=== PATIENT | male | born 1970 | race Hispanic/Latino ===

== ENCOUNTER 2016-08-06 15:17 | Emergency (ER) | payer OTHER ==
[2016-08-06] MEDS ORDERED: ANCEF IM ONE (16:36)
--- NOTE | 2016-08-06 16:38 | Emergency Department Report ---
Chief Complaint: Extremity Injury, Upper Stated Complaint: SMASHED FINGER ON PIPE/LEFT HAND Time Seen by Provider: 08/06/16 16:30 - HPI History of Present Illness: partial amp of finger dressed by nurse pt states hanging on bleeding controlled needs tdap/wound repair vss - Exam Vital Signs: Vital Signs 08/06/16 16:25 Temperature 98.1 F Pulse Rate 68 Respiratory 20 Rate Blood Pressure 139/99 O2 Sat by Pulse 97 Oximetry MSE screening note: Focused history and physical exam performed. Due to findings the following was ordered: ED Disposition for MSE Condition: Stable
[2016-08-06] MEDS ORDERED: TENIVAC IM ONE (17:00)
[2016-08-06 18:10] LABS: Basophils % (Auto) 1.2 % (0.0-1.8); Hemoglobin 17.9 gm/dl (11.8-15.2); Mean Corpuscular HGB Conc 33 % (32-34); Mean Corpuscular Hemoglobin 31 pg (28-32); Mean Corpuscular Volume 92 fl (84-94); Platelet Count 240 K/mm3 (140-440); Red Blood Count 5.87 M/mm3 (3.65-5.03); Red Cell Distribution Width 13.9 % (13.2-15.2); White Blood Count 11.3 K/mm3 (4.5-11.0)
[2016-08-06 18:22] LABS: INR 0.98 (0.87-1.13)
[2016-08-06 18:23] LABS: Partial Thromboplastin Time 28.2 Sec. (24.2-36.6)
[2016-08-06 18:26] LABS: Alanine Aminotransferase 41 units/L (7-56); Albumin 4.2 g/dL (3.9-5); Albumin/Globulin Ratio 1.4 %; Alkaline Phosphatase 71 units/L (35-129); Anion Gap 18 mmol/L; Bilirubin,Total 0.2 mg/dL (0.1-1.2); Blood Urea Nitrogen 13 mg/dL (9-20); Calcium 9.5 mg/dL (8.4-10.2); Carbon Dioxide 25 mmol/L (22-30); Chloride 101.3 mmol/L (98-107); Glucose 96 mg/dL (75-100); Potassium 4.2 mmol/L (3.6-5.0); Sodium 140 mmol/L (137-145); Total Protein 7.1 g/dL (6.3-8.2)
[2016-08-06] MEDS ORDERED: ZOFRAN IM ONE (23:49)
[2016-08-06] MEDS ORDERED: DILAUDID IM ONE (23:49)
[2016-08-06] MEDS ORDERED: XYLOCAINE 1% 20 mL INFILTRATI ONE (23:50)
[2016-08-07] MEDS ORDERED: DILAUDID IV ONE ×2 (00:01→01:31)
[2016-08-07] MEDS ORDERED: ANCEF/NS 1 GM/50 ML 1 GM/50 ML BAG IV ONE (00:01)
[2016-08-07] MEDS ORDERED: ZOFRAN IV ONE (00:01)
[2016-08-07] MEDS ORDERED: NACL 0.9% 500 ML IR ONE (00:04)
[2016-08-07] MEDS ORDERED: TRIPLE ANTIBIOTIC TP ONE ×2 (01:32→04:07)
--- NOTE | 2016-08-07 01:34 | Emergency Department Report ---
ED Upper Extremity Inj HPI - General Chief Complaint: Extremity Injury, Upper Stated Complaint: SMASHED FINGER ON PIPE/LEFT HAND Time Seen by Provider: 08/06/16 23:38 Source: patient Mode of arrival: Ambulatory Limitations: No Limitations - History of Present Illness Initial Comments: 45-year-old male with a past medical history elevated cholesterol presents to the hospital complains of left ring finger injury. 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 Patient injured his finger on a pipe. He was not wearing gloves. Denies that his hand was submerged in any water. Patient was seen at [facility] and received Toradol for pain prior to evaluation and was sent to the ER. Tetanus not up to date. Pain is rated 10/10 in intensity, throbbing, constant, worse with palpation and movement. No leading factors reported. Patient is right-hand dominant - Related Data Home Medications Medication Instructions Recorded Confirmed Last Taken Simvastatin [Zocor TAB] 20 mg PO QHS 08/06/16 08/06/16 Unknown Testosterone Enanthate 200 mg IM 1XW 08/06/16 08/06/16 Unknown traMADol [Ultram 50 MG tab] 1 tab PO Q6H PRN 08/06/16 08/06/16 Unknown Previous Rx's Medication Instructions Recorded Last Taken Type Cephalexin [Keflex] 500 mg PO Q6HR #28 capsule 08/07/16 Unknown Rx HYDROcodone/APAP 7.5-325 [[place] 1 each PO Q6HR PRN #20 tablet 08/07/16 Unknown Rx 7.5/325] Ibuprofen [Motrin] 800 mg PO Q8HR PRN #30 tablet 08/07/16 Unknown Rx Allergies Allergy/AdvReac Type Severity Reaction Status Date / Time No Known Allergies Allergy Unverified 08/06/16 16:22 ED Review of Systems ROS: Stated complaint: SMASHED FINGER ON PIPE/LEFT HAND Other details as noted in HPI Comment: All other systems reviewed and negative Other: Constitutional: No fevers chills Eyes: No eye pain visual changes ENT: No ear pain or throat pain Neck: Denies pain Respiratory: Denies cough wheezing shortness of breath Cardiovascular: Denies chest pain, palpitations, syncope GI: Denies abdominal pain, nausea, vomiting, diarrhea : Denies dysuria Musculoskeletal: as per hpi Skin: as per hpi Neurologic: Denies headache, numbness, weakness Psychiatric: Denies suicidal ideation, hallucinations ED Past Medical Hx - Past Medical History Previous Medical History?: Yes Additional medical history: High cholesterol - Surgical History Past Surgical History?: Yes Additional Surgical History: Patent ductus surgery, Back surgery L5-S1 - Social History Smoking Status: Former Smoker Substance Use Type: Alcohol, Prescribed - Medications Home Medications: Home Medications Medication Instructions Recorded Confirmed Last Taken Type Simvastatin [Zocor TAB] 20 mg PO QHS 08/06/16 08/06/16 Unknown History Testosterone Enanthate 200 mg IM 1XW 08/06/16 08/06/16 Unknown History traMADol [Ultram 50 MG tab] 1 tab PO Q6H PRN 08/06/16 08/06/16 Unknown History Cephalexin [Keflex] 500 mg PO Q6HR #28 capsule 08/07/16 Unknown Rx HYDROcodone/APAP 7.5-325 [[place] 1 each PO Q6HR PRN #20 tablet 08/07/16 Unknown Rx 7.5/325] Ibuprofen [Motrin] 800 mg PO Q8HR PRN #30 tablet 08/07/16 Unknown Rx ED Physical Exam - General Limitations: No Limitations - Other Other exam information: General: No limitations, patient is alert in no acute distress Head exam: Atraumatic, normocephalic Eyes exam: Normal appearance ENT: Moist mucous membrane, normal oropharynx Neck exam: Normal inspection, full range of motion, no meningismus nontender Respiratory exam: Clear to auscultation bilateral, no wheezes, rales, crackles Cardiovascular: Normal rate and rhythm, normal heart sounds Abdomen: Soft, nondistended, and nontender, with normal bowel sounds, no rebound, or guarding Extremity: Left hand fourth finger distal 2 cm laceration on the pulp of the finger extending along the side of the nailbed. 100% subungual hematoma with nail slightly lifted upward. sensation intact, FROM. Back: Normal Inspection Neurologic: Alert, oriented x3, cranial nerves intact, no motor or sensory deficit Psychiatric: normal affect, normal mood Skin: Warm, dry, intact ED Course Vital Signs 08/06/16 08/07/16 08/07/16 16:25 00:15 01:13 Temperature 98.1 F Pulse Rate 68 70 70 Respiratory 20 18 18 Rate Blood Pressure 139/99 Blood Pressure 163/101 183/102 [Right] O2 Sat by Pulse 97 99 97 Oximetry - Reevaluation(s) Reevaluation #1: 08/07/16 01:42 meds received: Dilaudid, Zofran, Ancef, and tetanus - Consultations Consultation #1: 08/07/16 12:41 Case d/w DR. Caro. Rec irrigation, loose closure, and outpatient f/u, abx - Laceration /Wound Repair Left Hand Wound Location: upper extremity Wound Length (cm): 2 Wound's Depth, Shape: linear Wound Explored: clean Irrigated w/ Saline (ccs): 500 Betadine Prep?: Yes Anesthesia: 1% Lidocaine Volume Anesthetic (ccs): 6 Suture Size/Type: 4:0, proline Number of Sutures: 5 Layer Closure?: No Sterile Dressing Applied?: Yes Progress: Pt also had cauterization of nail with drainage of subungal hematoma. Nail was already partially lifted and remains in place. pt warned of possible nail loss/ falling off due to this injury. ED Medical Decision Making - Lab Data Result diagrams: 08/06/16 17:34 08/06/16 17:34 Lab Results 08/06/16 08/06/16 08/06/16 Range/Units 17:34 17:34 17:34 WBC 11.3 H (4.5-11.0) K/mm3 RBC 5.87 H (3.65-5.03) M/mm3 Hgb 17.9 H (11.8-15.2) gm/dl Hct 54.0 H (35.5-45.6) % MCV 92 (84-94) fl MCH 31 (28-32) pg MCHC 33 (32-34) % RDW 13.9 (13.2-15.2) % Plt Count 240 (140-440) K/mm3 Lymph % (Auto) 22.6 (13.4-35.0) % Faulk % (Auto) 8.3 H (0.0-7.3) % Eos % (Auto) 5.0 H (0.0-4.3) % Baso % (Auto) 1.2 (0.0-1.8) % Lymph # 2.6 (1.2-5.4) K/mm3 Faulk # 0.9 H (0.0-0.8) K/mm3 Eos # 0.6 H (0.0-0.4) K/mm3 Baso # 0.1 (0.0-0.1) K/mm3 Seg Neutrophils % 62.9 (40.0-70.0) % Seg Neutrophils # 7.1 (1.8-7.7) K/mm3 PT 12.9 (12.2-14.9) Sec. INR 0.98 (0.87-1.13) APTT 28.2 (24.2-36.6) Sec. Sodium 140 (137-145) mmol/L Potassium 4.2 (3.6-5.0) mmol/L Chloride 101.3 (98-107) mmol/L Carbon Dioxide 25 (22-30) mmol/L Anion Gap 18 mmol/L BUN 13 (9-20) mg/dL Creatinine 1.0 (0.8-1.5) mg/dL Estimated GFR > 60 ml/min BUN/Creatinine Ratio 13.00 % Glucose 96 (75-100) mg/dL Calcium 9.5 (8.4-10.2) mg/dL Total Bilirubin 0.2 (0.1-1.2) mg/dL AST 26 (5-40) units/L ALT 41 (7-56) units/L Alkaline Phosphatase 71 (35-129) units/L Total Protein 7.1 (6.3-8.2) g/dL Albumin 4.2 (3.9-5) g/dL Albumin/Globulin Ratio 1.4 % - Radiology Data Radiology results: image reviewed (left hand xray: distal phalanx fracture of ring finger) - Medical Decision Making Patient's his distal finger fracture with associated laceration, probable nailbed injury with subungual hematoma. Sutures placed and nail cauterized to allow drainage of sublingual hematoma. - Differential Diagnosis fxt, contusion, sprain. Critical Care Time: No Critical care attestation.: If time is entered above; I have spent that time in minutes in the direct care of this critically ill patient, excluding procedure time. ED Disposition Clinical Impression: Subungual hematoma, Fracture, finger, distal phalanx, open Finger laceration Qualifiers: Encounter type: initial encounter Qualified Code(s): S61.219A - Laceration without foreign body of unspecified finger without damage to nail, initial encounter Disposition: DISCHARGED TO HOME OR SELFCARE Is pt being admited?: No Does the pt Need Aspirin: No Condition: Stable Instructions: Finger Laceration (ED), Subungual Hematoma (ED), Finger Fracture (ED) Additional Instructions: Take the medication as prescribed. Continue to monitor wound for infection as discussed. Follow up with the Orthopedic doctor provided. Stitches need to be removed in 7-10 days. You may return here for stitches removal, follow up with your primary care doctor or clinic, with orthopedic doctor for removal You will need to see an orthopedic doctor regardles due to your fracture/broken bone in your finger removal. Prescriptions: Cephalexin [Keflex] 500 mg PO Q6HR #28 capsule HYDROcodone/APAP 7.5-325 [[place] 7.5/325] 1 each PO Q6HR PRN #20 tablet PRN Reason: Pain Ibuprofen [Motrin] 800 mg PO Q8HR PRN #30 tablet PRN Reason: Pain Referrals: KATHI CARO MD [Staff Physician] - 3-5 Days Time of Disposition: 01:52
[2016-08-07 02:12] VITALS: BP 145/88
[2016-08-07] MEDS ORDERED: NACL 0.9% IR ONE (04:07)
--- NOTE | 2016-08-07 08:45 | XRay Report ---
Left finger: Trauma, pain. There is a laceration of the tissues over the distal fourth phalanx with surrounding bandages. There appears to be disruption of the cortex of the tuft predominantly on the radial side. No foreign body noted. No additional findings. Impression: Soft tissue and bone injury of the distal fourth digit.
== END 2016-08-07 02:36 | disposition home or self-care (01) ==
LOC: ED 15:17
DX: S62.635A Displaced fracture of distal phalanx of left ring finger, initial encounter for closed fracture (principal); S61.315A Laceration without foreign body of left ring finger with damage to nail, initial encounter; S60.142A Contusion of left ring finger with damage to nail, initial encounter; E78.00 Pure hypercholesterolemia, unspecified; Z87.891 Personal history of nicotine dependence; W31.89XA Contact with other specified machinery, initial encounter; Y93.89 Activity, other specified; Y92.89 Other specified places as the place of occurrence of the external cause; Y99.0 Civilian activity done for income or pay
CPT/HCPCS: 11740; 12001; 36415; 73140; 80053; 85025; 85610; 85730; 90471; 90714; 96365; 96375; 99284; J0690; J1170; J2405; A6250